=== PATIENT | female | born 1935 | race Caucasian/White ===

== ENCOUNTER → 2016-09-16 | Outpatient (CLI) | payer MEDICARE, BC ==
[~2016-09-16] MED LIST: ASPIR-LOW81 MG PO; ASPIRIN E.C. 8181 MG PO; ATIVAN 0.50.5 MG/TAB PO; ATORVASTATIN; BETAPACE 120MG120 MG PO; CALTRATE-600 W600 MG PO; CARDI-OMEGA1000 MG PO; CARDIZEM CD 18180 MG PO; CENTRUM SILVER1 TA1 PO; CIPRO 500MG TA500 MG PO; COMBIRESP IH; COMBIVENT INH14.7 GM IH; DOXYCYCLINE 10100 MG PO; DULERA1 AR1 IH; DULERA1 ARO IH; ELIQUIS 2.5 PO; FLAX SEED OIL1000 MG PO; GAS RELIEF EXT125 MG PO; HCTZ; HCTZ 25MG TAB25 MG PO; HCTZ12.5TAB PO; HEPARIN 50500 U/5 ML IV; INCRUSE EL62.5 MCG/A IH; LIPITOR 10MG10 MG PO; MACARDIS; MAXIPIME2 GM IV; MICARDIS 40MG40 MG PO; MICARDIS80 MG PO; MULTAQ400 MG PO; NORVASC 10MG10 MG PO; NORVASC 5MG5 MG/TAB PO; NS INT FLUSH 1010 ML IV; PREDNISONE20 MG PO; PRESERVISIONLUT PO; PROMETHAZINE V473 M2 PO; ROBITUSSIN A-C S1 M1 PO; SENOKOT8.6 MG PO; SPIRIVA18 MCG IH; SYMBICORT1 AE2 IH; TOPROL XL100 MG PO; TOPROL XL25 MG PO; ULTRAM 50MG TAB50 MG PO; VITAMIN D1000 IU PO; XARELTO20 MG PO; ZOFRAN 4MG T4 MG/TAB PO; ZYRTEC 10MG10 MG PO
== END ==
LOC: MC.RAD 14:42
DX: Z12.31 Encounter for screening mammogram for malignant neoplasm of breast (principal)

== ENCOUNTER 2016-12-03 13:23 | Inpatient (IN) | payer MEDICARE, BC ==
[~2016-12-03] VITALS: Ht 152.4 cm; Wt 49.2 kg
[~2016-12-03 13:23] MED LIST changes: -CIPRO 500MG TA500 MG PO; -DOXYCYCLINE 10100 MG PO; -DULERA1 AR1 IH; -GAS RELIEF EXT125 MG PO; -HCTZ 25MG TAB25 MG PO; -HEPARIN 50500 U/5 ML IV; -MAXIPIME2 GM IV; -NORVASC 10MG10 MG PO; -NS INT FLUSH 1010 ML IV; -PREDNISONE20 MG PO; -PROMETHAZINE V473 M2 PO; -ROBITUSSIN A-C S1 M1 PO; -ZOFRAN 4MG T4 MG/TAB PO
[2016-12-03 14:01] LABS: MEAN CELL VOLUME 81 fl (80.0-100.0); MEAN CORPUSCULAR HGB CONC 33 g/dl (33.0-37.0); MEAN PLATELET VOLUME 9.7 fl (7.4-10.4); PLATELET COUNT 407 K/mm3 (130-400); RED BLOOD COUNT 4.24 M/mm3 (4.10-5.30); REDCELL DISTRIBUTION WIDTH-CV 15.3 % (11.5-14.5)
[2016-12-03 14:04] LABS: HEMATOCRIT 34.5 % (37.0-47.0); HEMOGLOBIN 11.5 g/dl (12.5-16.0); MEAN CORPUSCULAR HEMOGLOBIN 27 pg (27.0-31.0)
[2016-12-03 14:08] LABS: ADD PATHOLOGY DIFF REVIEW NO; WHITE BLOOD COUNT 26.5 K/mm3 (4.8-10.8)
[2016-12-03 14:13] LABS: ADJUSTED CALCIUM 9.5 mg/dL (8.4-10.2); BILIRUBIN,TOTAL 1.3 mg/dL (0.0-1.0); CALCIUM 9.5 mg/dL (8.4-10.2); CREATININE, serum 0.75 mg/dL (0.52-1.25); POTASSIUM 3.7 mmol/L (3.4-5.0); TOTAL PROTEIN 8.5 gm/dL (6.4-8.2)
[2016-12-03 14:13] LABS: ARTERIAL BLD GAS O2 SATURATION 93.1 % (92-100); ARTERIAL BLD GAS TCO2 CT 27.1; ARTERIAL BLOOD GAS BASE EXCESS 3.2 (-2-2); ARTERIAL BLOOD GAS PO2 63.9 mmHg (80-100); ARTERIAL BLOOD GAS PO2T 63.9 (80-100); OXYHEMOGLOBIN 92.2 %
[2016-12-03 14:14] LABS: ALLEN TEST YES; ALLENS TEST RESULT PASS; ATS? YES
[2016-12-03 14:35] LABS: BAND 10 % (0-10); NEUTROPHILS 79 % (42.0-75.2)
[2016-12-03 14:36] LABS: PLATELET ESTIMATE INCREASED (NORMAL); TOTAL CELLS COUNTED 200
[2016-12-03 14:40] LABS: ANISOCYTOSIS 1+; DOHLE BODIES PRESENT; OVALOCYTES 1+; TOXIC GRANULATION PRESENT
[2016-12-03 16:07] VITALS: BP 139/62; PULSE 58; TEMP 97.8
[2016-12-03] MEDS ORDERED: HCTZ 25MG TAB25 MG PO (16:18)
[2016-12-03] MEDS ORDERED: BETAPACE 120MG120 MG PO (16:19)
[2016-12-03] MEDS ORDERED: ELIQUIS 2.5 PO (16:22)
[2016-12-03] MEDS ORDERED: GAS RELIEF EXT125 MG PO (17:50)
[2016-12-03 19:19] VITALS: BP 137/62; PULSE 62; TEMP 97.6
[2016-12-03 23:53] VITALS: BP 128/57; PULSE 59; TEMP 97.6
[2016-12-04 04:13] VITALS: BP 131/51; PULSE 59; TEMP 97.5
[2016-12-04 07:29] LABS: CALCIUM 8.6 mg/dL (8.4-10.2); CREATININE, serum 0.48 mg/dL (0.52-1.25); POTASSIUM 3.1 mmol/L (3.4-5.0)
[2016-12-04 07:30] VITALS: BP 144/55; PULSE 64; TEMP 97.4
[2016-12-04 10:50] VITALS: BP 139/52; PULSE 61; TEMP 97.6
[2016-12-04 16:38] LABS: MEAN CELL VOLUME 80 fl (80.0-100.0); MEAN CORPUSCULAR HGB CONC 34 g/dl (33.0-37.0); MEAN PLATELET VOLUME 9.9 fl (7.4-10.4); PLATELET COUNT 422 K/mm3 (130-400); RED BLOOD COUNT 3.98 M/mm3 (4.10-5.30)
[2016-12-04 16:39] LABS: WHITE BLOOD COUNT 23.8 K/mm3 (4.8-10.8)
[2016-12-04 16:40] LABS: HEMATOCRIT 31.9 % (37.0-47.0); HEMOGLOBIN 10.8 g/dl (12.5-16.0); MEAN CORPUSCULAR HEMOGLOBIN 27 pg (27.0-31.0)
[2016-12-04 16:45] LABS: CALCIUM 8.4 mg/dL (8.4-10.2); CREATININE, serum 0.51 mg/dL (0.52-1.25); POTASSIUM 3.1 mmol/L (3.4-5.0)
[2016-12-04 20:34] VITALS: BP 146/55; PULSE 61; TEMP 98.3
[2016-12-04 23:14] VITALS: BP 153/71; PULSE 64; TEMP 98.7
[2016-12-05 04:41] VITALS: BP 188/70; PULSE 95; TEMP 98.2
[2016-12-05 07:43] VITALS: BP 159/66; PULSE 69; TEMP 98
[2016-12-05 08:02] LABS: CALCIUM 8.2 mg/dL (8.4-10.2); CREATININE, serum 0.48 mg/dL (0.52-1.25); POTASSIUM 3.1 mmol/L (3.4-5.0)
[2016-12-05 12:00] VITALS: BP 148/57; PULSE 66; TEMP 98.2
[2016-12-05 12:56] LABS: MEAN CELL VOLUME 83 fl (80.0-100.0); MEAN CORPUSCULAR HGB CONC 33 g/dl (33.0-37.0); MEAN PLATELET VOLUME 10.6 fl (7.4-10.4); PLATELET COUNT 452 K/mm3 (130-400); RED BLOOD COUNT 3.91 M/mm3 (4.10-5.30); REDCELL DISTRIBUTION WIDTH-CV 15.7 % (11.5-14.5)
[2016-12-05 13:02] LABS: ADD PATHOLOGY DIFF REVIEW NO; HEMATOCRIT 32.5 % (37.0-47.0); HEMOGLOBIN 10.6 g/dl (12.5-16.0); MEAN CORPUSCULAR HEMOGLOBIN 27 pg (27.0-31.0); WHITE BLOOD COUNT 20.7 K/mm3 (4.8-10.8)
[2016-12-05 14:16] LABS: BAND 1 % (0-10); NEUTROPHILS 93 % (42.0-75.2); TOTAL CELLS COUNTED 100
[2016-12-05 14:18] LABS: ANISOCYTOSIS 1+; BURR CELLS 1+; POIKILOCYTOSIS 1+
[2016-12-05 14:19] LABS: POLYCHROMASIA 1+
[2016-12-05 15:07] VITALS: BP 153/73; PULSE 70; TEMP 98.2
[2016-12-05 19:33] VITALS: BP 153/66; PULSE 50; TEMP 98.1
[2016-12-06] VITALS (7 sets, daily range): BP systolic 132–177; BP diastolic 58–96; PULSE 62–90; TEMP 97.4–98.5
[2016-12-06 08:51] LABS: BASO % 0.2 % (0.0-2.0); EOS % 0.3 % (0-4.0); GRAN # 9.8 (1.4-6.5); GRAN % 81.9 % (42.2-75.2); LYMPH # 0.7 (1.2-3.4); LYMPH % 5.4 % (20.0-51.0); MEAN CELL VOLUME 83 fl (80.0-100.0); MEAN CORPUSCULAR HGB CONC 32 g/dl (33.0-37.0); MEAN PLATELET VOLUME 10.1 fl (7.4-10.4); MONO # 1.3 (0.1-0.6); MONO % 10.9 % (1.7-9.3); PLATELET COUNT 469 K/mm3 (130-400); RED BLOOD COUNT 3.94 M/mm3 (4.10-5.30); REDCELL DISTRIBUTION WIDTH-CV 15.5 % (11.5-14.5); WHITE BLOOD COUNT 11.9 K/mm3 (4.8-10.8)
[2016-12-06 09:00] LABS: HEMATOCRIT 32.8 % (37.0-47.0); HEMOGLOBIN 10.6 g/dl (12.5-16.0); MEAN CORPUSCULAR HEMOGLOBIN 27 pg (27.0-31.0)
[2016-12-06 09:07] LABS: CALCIUM 8.6 mg/dL (8.4-10.2); CREATININE, serum 0.45 mg/dL (0.52-1.25); POTASSIUM 3.1 mmol/L (3.4-5.0)
[2016-12-07 04:54] VITALS: BP 156/77; PULSE 95; TEMP 98.5
[2016-12-07 07:14] VITALS: BP 153/87; PULSE 110; TEMP 97.7
[2016-12-07 08:21] LABS: CALCIUM 8.4 mg/dL (8.4-10.2); CREATININE, serum 0.45 mg/dL (0.52-1.25); POTASSIUM 3.2 mmol/L (3.4-5.0)
[2016-12-07 08:26] LABS: BASO % 0.2 % (0.0-2.0); EOS # 0.1 (0.0-0.7); EOS % 0.6 % (0-4.0); GRAN # 12.1 (1.4-6.5); GRAN % 81.7 % (42.2-75.2); MEAN CELL VOLUME 82 fl (80.0-100.0); MEAN CORPUSCULAR HGB CONC 33 g/dl (33.0-37.0); MEAN PLATELET VOLUME 9.5 fl (7.4-10.4); MONO # 1.1 (0.1-0.6); MONO % 7.3 % (1.7-9.3); PLATELET COUNT 448 K/mm3 (130-400); REDCELL DISTRIBUTION WIDTH-CV 15.3 % (11.5-14.5); WHITE BLOOD COUNT 14.8 K/mm3 (4.8-10.8)
[2016-12-07 08:31] LABS: HEMATOCRIT 31.2 % (37.0-47.0); HEMOGLOBIN 10.2 g/dl (12.5-16.0); MEAN CORPUSCULAR HEMOGLOBIN 27 pg (27.0-31.0)
[2016-12-07 11:28] VITALS: BP 113/77; PULSE 100; TEMP 97.9
[2016-12-07 15:49] VITALS: BP 115/70; PULSE 112; TEMP 97.2
[2016-12-07 20:09] VITALS: BP 141/80; PULSE 94; TEMP 98.1
[2016-12-08 00:06] VITALS: BP 138/75; PULSE 95; TEMP 98
[2016-12-08 05:00] VITALS: BP 145/87; PULSE 105; TEMP 97.8
[2016-12-08 07:50] VITALS: BP 148/90; PULSE 97; TEMP 98.4
[2016-12-08 11:47] LABS: MEAN CELL VOLUME 83 fl (80.0-100.0); MEAN CORPUSCULAR HGB CONC 32 g/dl (33.0-37.0); MEAN PLATELET VOLUME 9.7 fl (7.4-10.4); PLATELET COUNT 503 K/mm3 (130-400); REDCELL DISTRIBUTION WIDTH-CV 15.3 % (11.5-14.5); WHITE BLOOD COUNT 13.5 K/mm3 (4.8-10.8)
[2016-12-08 11:52] LABS: ADD PATHOLOGY DIFF REVIEW NO; HEMATOCRIT 33.2 % (37.0-47.0); HEMOGLOBIN 10.7 g/dl (12.5-16.0); MEAN CORPUSCULAR HEMOGLOBIN 27 pg (27.0-31.0)
[2016-12-08 12:06] LABS: CALCIUM 8.5 mg/dL (8.4-10.2); CREATININE, serum 0.59 mg/dL (0.52-1.25); POTASSIUM 3.5 mmol/L (3.4-5.0)
[2016-12-08 12:42] VITALS: BP 111/72; PULSE 107; TEMP 98.3
[2016-12-08 12:53] LABS: BAND 21 % (0-10); EOSINOPHIL 2 % (0-4); HYPOCHROMIA 1+; NEUTROPHILS 65 % (42.0-75.2); PLATELET ESTIMATE INCREASED (NORMAL); TOTAL CELLS COUNTED 100
[2016-12-08 12:54] LABS: ANISOCYTOSIS 1+
[2016-12-08] MEDS ORDERED: HEPARIN 50500 U/5 ML IV (14:27)
[2016-12-08] MEDS ORDERED: NS INT FLUSH 1010 ML IV (14:28)
[2016-12-08] MEDS ORDERED: MAXIPIME2 GM IV (14:29)
== END 2016-12-08 17:30 | disposition home or self-care (01) | DRG 177 ==
LOC: COL.ER 13:23 → MEDICAL 14:55
PROVIDERS: Family Medicine; Internal Medicine Cardiovascular Disease; Nurse Practitioner Family
PROC: 02HV33Z Insertion of Infusion Device into Superior Vena Cava, Percutaneous Approach (ICD-10-PCS; principal; 2016-12-08)
DX: J15.1 Pneumonia due to Pseudomonas (principal); J96.21 Acute and chronic respiratory failure with hypoxia; E43 Unspecified severe protein-calorie malnutrition; J44.0 Chronic obstructive pulmonary disease with (acute) lower respiratory infection; I50.32 Chronic diastolic (congestive) heart failure; E87.1 Hypo-osmolality and hyponatremia; I11.0 Hypertensive heart disease with heart failure; Z87.891 Personal history of nicotine dependence; E87.6 Hypokalemia; I48.2 Chronic atrial fibrillation; F41.1 Generalized anxiety disorder
CPT/HCPCS: 99222-AI; 99232-AI; 99233-AI; 99239; C1751; J0692; J0696; J1940; J2930; J7030

== ENCOUNTER 2017-01-13 10:00 | Inpatient (IN) | payer MEDICARE, BC ==
[~2017-01-13] VITALS: Ht 152.4 cm; Wt 46.9 kg
[~2017-01-13 10:00] MED LIST changes: +GAS RELIEF EXT125 MG PO; +HCTZ 25MG TAB25 MG PO; +HEPARIN 50500 U/5 ML IV; +MAXIPIME2 GM IV; +NS INT FLUSH 1010 ML IV
[2017-01-13 10:48] LABS: ARTERIAL BLD GAS O2 SATURATION 90.8 % (92-100); ARTERIAL BLD GAS TCO2 CT 30.7; ARTERIAL BLOOD GAS HCO3 29.4 meq/L (22-26); ARTERIAL BLOOD GAS PHT 7.45 C (7.35-7.45); ARTERIAL BLOOD GAS PO2 60.4 mmHg (80-100); ARTERIAL BLOOD GAS PO2T 60.4 (80-100); ARTERIAL BLOOD GAS pH 7.45 (7.35-7.45); OXYHEMOGLOBIN 90.1 %
[2017-01-13 10:49] LABS: ALLEN TEST YES; ALLENS TEST RESULT PASS; ATS? YES
[2017-01-13 11:09] LABS: MEAN CELL VOLUME 83 fl (80.0-100.0); MEAN CORPUSCULAR HGB CONC 32 g/dl (33.0-37.0); MEAN PLATELET VOLUME 9.9 fl (7.4-10.4); PLATELET COUNT 315 K/mm3 (130-400); REDCELL DISTRIBUTION WIDTH-CV 16.6 % (11.5-14.5)
[2017-01-13 11:22] LABS: ADJUSTED CALCIUM 9.1 mg/dL (8.4-10.2); ALBUMIN 3.8 gm/dL (3.5-5.0); BILIRUBIN,TOTAL 1.1 mg/dL (0.0-1.0); CALCIUM 8.9 mg/dL (8.4-10.2); CREATININE, serum 0.76 mg/dL (0.52-1.25); POTASSIUM 3.7 mmol/L (3.4-5.0)
[2017-01-13 11:25] LABS: PARTIAL THROMBOPLASTIN TIME 40.3 SECONDS (26.0-37.0)
[2017-01-13 11:33] LABS: HEMATOCRIT 33.1 % (37.0-47.0); HEMOGLOBIN 10.7 g/dl (12.5-16.0); MEAN CORPUSCULAR HEMOGLOBIN 27 pg (27.0-31.0); WHITE BLOOD COUNT 27.6 K/mm3 (4.8-10.8)
[2017-01-13 11:35] LABS: INR 2.4 (0.8-3.0); PROTHROMBIN TIME 27.8 SECONDS (9.7-12.8)
[2017-01-13 11:39] LABS: ADD PATHOLOGY DIFF REVIEW NO
[2017-01-13 11:43] LABS: TROPONIN-I 0.04 ng/mL (0.000-0.034)
[2017-01-13 11:52] LABS: BAND 42 % (0-10); NEUTROPHILS 54 % (42.0-75.2); PLATELET ESTIMATE NORMAL (NORMAL); TOTAL CELLS COUNTED 100
[2017-01-13] MEDS ORDERED: NORVASC 10MG10 MG PO (12:44)
[2017-01-13] MEDS ORDERED: ROBITUSSIN A-C S1 M1 PO (12:47)
[2017-01-13] MEDS ORDERED: ZOFRAN 4MG T4 MG/TAB PO (12:49)
[2017-01-13] MEDS ORDERED: PROMETHAZINE V473 M2 PO (12:51)
[2017-01-13] MEDS ORDERED: DULERA1 AR1 IH (12:54)
[2017-01-13 14:39] VITALS: BP 102/55; PULSE 57; TEMP 97.8
[2017-01-13 19:58] VITALS: BP 150/56; PULSE 69; TEMP 98.5
[2017-01-13 23:03] VITALS: BP 135/64; PULSE 63; TEMP 97.6
[2017-01-14 03:20] VITALS: BP 133/79; PULSE 110; TEMP 98.5
[2017-01-14 07:52] VITALS: BP 143/93; PULSE 88; TEMP 97.5
[2017-01-14 08:01] LABS: CREATININE, serum 0.44 mg/dL (0.52-1.25)
[2017-01-14 08:02] LABS: MEAN CELL VOLUME 83 fl (80.0-100.0); MEAN CORPUSCULAR HGB CONC 32 g/dl (33.0-37.0); MEAN PLATELET VOLUME 10.7 fl (7.4-10.4); PLATELET COUNT 317 K/mm3 (130-400); RED BLOOD COUNT 3.58 M/mm3 (4.10-5.30); REDCELL DISTRIBUTION WIDTH-CV 16.4 % (11.5-14.5); WHITE BLOOD COUNT 17.7 K/mm3 (4.8-10.8)
[2017-01-14 08:17] LABS: POTASSIUM 2.9 mmol/L (3.4-5.0)
[2017-01-14 08:20] LABS: HEMATOCRIT 29.7 % (37.0-47.0); HEMOGLOBIN 9.6 g/dl (12.5-16.0); MEAN CORPUSCULAR HEMOGLOBIN 27 pg (27.0-31.0)
[2017-01-14 08:21] LABS: ADD PATHOLOGY DIFF REVIEW NO
[2017-01-14 09:52] LABS: BAND 20 % (0-10); NEUTROPHILS 77 % (42.0-75.2); PLATELET ESTIMATE NORMAL (NORMAL); TOTAL CELLS COUNTED 100
[2017-01-14 12:03] VITALS: BP 133/79; PULSE 78
[2017-01-14 16:00] VITALS: BP 129/60; PULSE 66; TEMP 97.9
[2017-01-14 21:11] VITALS: BP 142/69; PULSE 65; TEMP 97.6
[2017-01-14 23:56] VITALS: BP 137/59; PULSE 67; TEMP 97.6
[2017-01-15 07:25] LABS: MEAN CELL VOLUME 85 fl (80.0-100.0); MEAN CORPUSCULAR HGB CONC 31 g/dl (33.0-37.0); MEAN PLATELET VOLUME 10.4 fl (7.4-10.4); PLATELET COUNT 344 K/mm3 (130-400); RED BLOOD COUNT 3.28 M/mm3 (4.10-5.30); REDCELL DISTRIBUTION WIDTH-CV 16.7 % (11.5-14.5)
[2017-01-15 07:28] VITALS: BP 151/80; PULSE 76; TEMP 98.4
[2017-01-15 07:31] LABS: ADD PATHOLOGY DIFF REVIEW NO; HEMOGLOBIN 8.7 g/dl (12.5-16.0); MEAN CORPUSCULAR HEMOGLOBIN 27 pg (27.0-31.0)
[2017-01-15 07:33] VITALS: BP 135/58; PULSE 62
[2017-01-15 07:42] LABS: CALCIUM 7.6 mg/dL (8.4-10.2); CREATININE, serum 0.48 mg/dL (0.52-1.25); POTASSIUM 4.3 mmol/L (3.4-5.0)
[2017-01-15 08:14] LABS: BAND 18 % (0-10); EOSINOPHIL 1 % (0-4); HYPOCHROMIA 2+; METAMYELOCYTE 1 % (0-0); NEUTROPHILS 76 % (42.0-75.2); TOTAL CELLS COUNTED 100
[2017-01-15 08:15] LABS: ANISOCYTOSIS 1+
[2017-01-15 10:59] VITALS: BP 134/63; PULSE 86; TEMP 97.8
[2017-01-15 15:28] VITALS: BP 158/71; PULSE 76; TEMP 97.9
[2017-01-15 21:00] VITALS: BP 209/86; PULSE 79; TEMP 98.5
[2017-01-15 22:30] VITALS: BP 201/82; PULSE 76; TEMP 98.4
[2017-01-16] VITALS (9 sets, daily range): BP systolic 148–207; BP diastolic 66–124; PULSE 43–130; TEMP 97.3–98.5
[2017-01-17 01:00] VITALS: BP 143/90; PULSE 102
[2017-01-17 07:08] LABS: BASO % 0.1 % (0.0-2.0); GRAN % 88.8 % (42.2-75.2); LYMPH # 0.6 (1.2-3.4); LYMPH % 4.3 % (20.0-51.0); MEAN CELL VOLUME 84 fl (80.0-100.0); MEAN CORPUSCULAR HGB CONC 32 g/dl (33.0-37.0); MONO # 0.8 (0.1-0.6); MONO % 5.4 % (1.7-9.3); PLATELET COUNT 428 K/mm3 (130-400); RED BLOOD COUNT 3.61 M/mm3 (4.10-5.30); REDCELL DISTRIBUTION WIDTH-CV 16.6 % (11.5-14.5); WHITE BLOOD COUNT 14.7 K/mm3 (4.8-10.8)
[2017-01-17 07:20] VITALS: BP 119/85; PULSE 75; TEMP 97.8
[2017-01-17 07:20] LABS: HEMATOCRIT 30.4 % (37.0-47.0); HEMOGLOBIN 9.7 g/dl (12.5-16.0); MEAN CORPUSCULAR HEMOGLOBIN 27 pg (27.0-31.0)
[2017-01-17 07:23] LABS: CALCIUM 7.7 mg/dL (8.4-10.2); CREATININE, serum 0.46 mg/dL (0.52-1.25); POTASSIUM 3.2 mmol/L (3.4-5.0)
[2017-01-17 12:28] VITALS: BP 151/55; PULSE 85; TEMP 97.9
[2017-01-17] MEDS ORDERED: DOXYCYCLINE 10100 MG PO (12:39)
[2017-01-17] MEDS ORDERED: CIPRO 500MG TA500 MG PO (12:39)
[2017-01-17] MEDS ORDERED: PREDNISONE20 MG PO (12:45)
[2017-01-17] MEDS ORDERED: ROBITUSSIN A-C S1 M1 PO (12:46)
[2017-01-17] MEDS ORDERED: ULTRAM 50MG TAB50 MG PO (12:46)
[2017-01-17] MEDS ORDERED: ATIVAN 0.50.5 MG/TAB PO (12:46)
[2017-01-17 14:42] VITALS: BP 151/55; PULSE 85; TEMP 97.9
== END 2017-01-17 15:14 | DRG 190 ==
LOC: COL.ER 10:00 → MEDICAL 11:59
PROVIDERS: Emergency Medicine; Family Medicine; Nurse Practitioner Family
DX: J44.0 Chronic obstructive pulmonary disease with (acute) lower respiratory infection (principal); J15.212 Pneumonia due to Methicillin resistant Staphylococcus aureus; J15.1 Pneumonia due to Pseudomonas; E43 Unspecified severe protein-calorie malnutrition; I10 Essential (primary) hypertension; Z87.891 Personal history of nicotine dependence; I48.0 Paroxysmal atrial fibrillation; E87.6 Hypokalemia
CPT/HCPCS: 99223-AI; 99232-AI; 99239; J0360; J0456; J0692; J0696; J2920; J3370; J7030; J7050

== ENCOUNTER → 2017-03-31 | Outpatient (CLI) | payer MEDICARE, BC ==
[~2017-03-31] MED LIST changes: +CIPRO 500MG TA500 MG PO; +DOXYCYCLINE 10100 MG PO; +DULERA1 AR1 IH; +NORVASC 10MG10 MG PO; +PREDNISONE20 MG PO; +PROMETHAZINE V473 M2 PO; +ROBITUSSIN A-C S1 M1 PO; +ZOFRAN 4MG T4 MG/TAB PO
== END ==
LOC: COL.PUL 03-24 14:00
DX: J44.9 Chronic obstructive pulmonary disease, unspecified (principal); Z87.891 Personal history of nicotine dependence

== ENCOUNTER 2018-08-03 13:43 | Inpatient (IN) | payer MEDICARE, BC ==
[~2018-08-03] VITALS: Ht 162.6 cm; Wt 47.3 kg
[2018-08-03 14:40] LABS: BASO % 0.2 % (0.0-2.0); EOS # 0.2 (0.0-0.7); EOS % 1.8 % (0-4.0); GRAN # 11.9 (1.4-6.5); GRAN % 87.1 % (42.2-75.2); HEMOGLOBIN 11.3 g/dl (12.5-16.0); LYMPH # 0.5 (1.2-3.4); LYMPH % 3.5 % (20.0-51.0); MEAN CELL VOLUME 82 fl (80.0-100.0); MEAN CORPUSCULAR HEMOGLOBIN 26 pg (27.0-31.0); MEAN CORPUSCULAR HGB CONC 32 g/dl (33.0-37.0); MONO # 0.8 (0.1-0.6); MONO % 6.1 % (1.7-9.3); PLATELET COUNT 487 K/mm3 (130-400); RED BLOOD COUNT 4.31 M/mm3 (4.10-5.30); REDCELL DISTRIBUTION WIDTH-CV 14.6 % (11.5-14.5)
[2018-08-03 14:47] LABS: HEMATOCRIT 35.5 % (37.0-47.0)
[2018-08-03 14:48] LABS: ALBUMIN 3.5 gm/dL (3.5-5.0); BILIRUBIN,TOTAL 0.5 mg/dL (0.0-1.0); CREATININE, serum 0.62 mg/dL (0.52-1.25); POTASSIUM 4.9 mmol/L (3.4-5.0); TOTAL PROTEIN 7.7 gm/dL (6.4-8.2)
[2018-08-03 14:56] LABS: INR 1.7 (0.8-3.0); PROTHROMBIN TIME 19.5 SECONDS (9.7-12.8)
[2018-08-03 16:19] LABS: ARTERIAL BLD GAS O2 SATURATION 91.6 % (92-100); ARTERIAL BLD GAS TCO2 CT 43.4; ARTERIAL BLOOD GAS BASE EXCESS 15.7 (-2-2); ARTERIAL BLOOD GAS HCO3 41.7 meq/L (22-26); ARTERIAL BLOOD GAS PCO2 57.5 mmHg (35-45); ARTERIAL BLOOD GAS PO2 62.9 mmHg (80-100); ARTERIAL BLOOD GAS pH 7.48 (7.35-7.45)
--- NOTE | 2018-08-03 18:13 | NUR ---
Pt arrived to room 309 via cart with EED staff. Pt transferred from the cart to the floor bed with the assistance of one. Pt and family oriented to room and call light system. Pt is sitting up in the bed watching TV at this time and she denies further needs. Call light within reach, will continue to monitor.
[2018-08-03 18:23] VITALS: BP 108/84; PULSE 87; TEMP 98.1
--- NOTE | 2018-08-03 19:10 | NUR ---
Since arriving to the floor the pt has been resting quietly. She has remained free of pain. Family members have remained at the bedside; all questions answered. Pt is sitting up in the bed eating her dinner at this time and she denies further needs. Call light within reach. Report given to WERNER Gan.
[2018-08-03 19:41] VITALS: BP 101/53; PULSE 108; TEMP 98
--- NOTE | 2018-08-03 19:53 | NUR ---
Resting in bed. Assessment complete. Right lung wheezing on expiration. Left lung clear. Alert and orientated. Requesting all 4 bed rails to be up on bed. Denies pain. Denies needs. Call light in reach.
--- NOTE | 2018-08-03 21:48 | NUR ---
Up to restroom and returned to bed. Denies other needs. Call light in reach.
[2018-08-03 23:53] VITALS: BP 102/84; PULSE 68; TEMP 98.3
--- NOTE | 2018-08-04 02:10 | NUR ---
Resting in bed asleep. Call light in reach.
[2018-08-04 03:58] VITALS: BP 114/70; PULSE 61; TEMP 97.7
--- NOTE | 2018-08-04 04:40 | NUR ---
Resting in bed. Call light in reach.
--- NOTE | 2018-08-04 06:00 | NUR ---
Up to restroom and returned to bed. Had uneventful night. Denies needs. Call light in reach.
[2018-08-04 07:44] VITALS: BP 99/67; PULSE 98; TEMP 97.7
[2018-08-04 08:47] LABS: HEMOGLOBIN 10.5 g/dl (12.5-16.0); MEAN CELL VOLUME 84 fl (80.0-100.0); MEAN CORPUSCULAR HEMOGLOBIN 27 pg (27.0-31.0); MEAN CORPUSCULAR HGB CONC 32 g/dl (33.0-37.0); MEAN PLATELET VOLUME 9.1 fl (7.4-10.4); PLATELET COUNT 481 K/mm3 (130-400); RED BLOOD COUNT 3.96 M/mm3 (4.10-5.30); REDCELL DISTRIBUTION WIDTH-CV 14.6 % (11.5-14.5)
[2018-08-04 09:02] LABS: BILIRUBIN,TOTAL 0.2 mg/dL (0.0-1.0); CALCIUM 8.3 mg/dL (8.4-10.2); CREATININE, serum 0.6 mg/dL (0.52-1.25); POTASSIUM 4.7 mmol/L (3.4-5.0); TOTAL PROTEIN 6.8 gm/dL (6.4-8.2)
[2018-08-04 09:06] LABS: HEMATOCRIT 33.1 % (37.0-47.0)
--- NOTE | 2018-08-04 09:24 | NUR ---
Assessment complete.patient awake,a/ox4.denies pain and discomfort at this time.Exp wheezes aus. 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
[2018-08-04 09:42] LABS: BAND 22 % (0-10); LYMPHOCYTE 2 % (20.0-51.0); NEUTROPHILS 75 % (42.0-75.2)
[2018-08-04 09:44] LABS: PLATELET ESTIMATE INCREASED (NORMAL)
[2018-08-04 11:15] VITALS: BP 103/57; PULSE 103; TEMP 98.5
--- NOTE | 2018-08-04 14:33 | NUR ---
SW met with patient to discuss discharge planning. Patient lives alone in [place] and uses o2 and a walker. Patients daughter is at her house a lot and her neighbor helps her as well. patients PCP is Dr Turner and she obtains her medications from [facility]. Patient is interested in home health again and would like to use [facility] as she has in the past. SW made hh referral.
[2018-08-04 15:31] VITALS: BP 122/68; PULSE 79; TEMP 97.5
[2018-08-04 18:42] VITALS: BP 147/82; PULSE 94; TEMP 97.6
--- NOTE | 2018-08-04 19:07 | NUR ---
Report received from WERNER Luong. Up to restroom with DELIVERY RN. Denies needs.
--- NOTE | 2018-08-04 20:05 | NUR ---
Resting in bed with family at bedside. Assessment complete. Right lower lobe diminished, all other crockett clear. Alert and orientated. Denies needs at this time. Call light in reach. Will monitor.
--- NOTE | 2018-08-04 20:35 | NUR ---
Patient called stating IV is bleeding. Upon assessment dried blood present on tegaderm, previously noted. Flushes well, no leaking, no infiltration present. Denies other needs at this time. Call light in reach.
--- NOTE | 2018-08-04 22:31 | NUR ---
Up to restroom and returned to bed. Denies needs. Call light in reach.
[2018-08-04 23:42] VITALS: BP 116/59; PULSE 61; TEMP 97.8
--- NOTE | 2018-08-05 00:20 | NUR ---
Resting in bed. Denies needs. Checked telemetry lead. Call light in reach.
--- NOTE | 2018-08-05 01:46 | NUR ---
Resting in bed asleep. Call light in reach.
--- NOTE | 2018-08-05 03:22 | NUR ---
Requested PRN Ativan at HS to help with anxiety/sleeping. Denies other needs at this time. Call light in reach.
[2018-08-05 03:54] VITALS: BP 119/64; PULSE 68
--- NOTE | 2018-08-05 04:24 | NUR ---
Resting in bed. Denies needs. Call light in reach.
--- NOTE | 2018-08-05 06:01 | NUR ---
Resting in bed this AM. Had uneventful night. Call light in reach.
--- NOTE | 2018-08-05 07:11 | NUR ---
report received from WERNER Gan.
[2018-08-05 07:14] LABS: BASO % 0.2 % (0.0-2.0); EOS % 0.1 % (0-4.0); GRAN # 15.3 (1.4-6.5); GRAN % 88.6 % (42.2-75.2); LYMPH # 0.6 (1.2-3.4); LYMPH % 3.5 % (20.0-51.0); MEAN CELL VOLUME 83 fl (80.0-100.0); MEAN CORPUSCULAR HGB CONC 32 g/dl (33.0-37.0); MEAN PLATELET VOLUME 9.1 fl (7.4-10.4); MONO # 1.2 (0.1-0.6); MONO % 6.7 % (1.7-9.3); PLATELET COUNT 433 K/mm3 (130-400); RED BLOOD COUNT 3.46 M/mm3 (4.10-5.30); REDCELL DISTRIBUTION WIDTH-CV 14.9 % (11.5-14.5)
[2018-08-05 07:23] LABS: HEMATOCRIT 28.8 % (37.0-47.0); HEMOGLOBIN 9.2 g/dl (12.5-16.0); MEAN CORPUSCULAR HEMOGLOBIN 27 pg (27.0-31.0)
[2018-08-05 07:29] LABS: CALCIUM 7.9 mg/dL (8.4-10.2); CREATININE, serum 0.51 mg/dL (0.52-1.25); POTASSIUM 4.1 mmol/L (3.4-5.0)
[2018-08-05 08:00] VITALS: BP 145/72; PULSE 82; TEMP 97.9
--- NOTE | 2018-08-05 08:37 | NUR ---
Assessment complete.patient awake,alert and oriented x4.denies pain and discomfort at this time.Vss.WBC trending up.crackles to bilat lungs bases.exp wheezes noted.patient continues having productive.MRSA screen pending.patient remains on contact precaution.IVF infusing.will continue to monitor.call light in reach
[2018-08-05 11:01] VITALS: BP 140/72; PULSE 95; TEMP 98.4
[2018-08-05 16:54] VITALS: BP 122/75; PULSE 98; TEMP 98.8
--- NOTE | 2018-08-05 18:57 | NUR ---
PATIENT RESTING IN BED AT THIS TIME.IVF INFUSING.PT WAS POSITIVE FOR MRSA.SPUTUM SAMPLE STILL PENDING.PATIENT AWARE.WILL CONTINUE TO MONITOR.CALL LIGHT IN REACH
[2018-08-05 20:02] VITALS: BP 143/68; PULSE 93; TEMP 97.9
--- NOTE | 2018-08-05 21:20 | NUR ---
Patient resting in bed with daughters at bedside. Denies pain. IV antibiotic started- wilberto. Assessment completed- some expiratory wheezes heard bilaterally. Vitals stable. Given new water with ice. No other needs at this time.
[2018-08-05 23:33] VITALS: BP 131/65; PULSE 54; TEMP 98.3
[2018-08-06 03:45] VITALS: BP 144/65; PULSE 85; TEMP 98.4
--- NOTE | 2018-08-06 05:14 | NUR ---
Patient slept most of the night, able to ambulate with SBA to restroom. Denies pain. IV antibiotics infusing. No other needs at this time.
[2018-08-06 06:08] LABS: BASO % 0.1 % (0.0-2.0); EOS # 0.1 (0.0-0.7); EOS % 0.4 % (0-4.0); GRAN # 11.8 (1.4-6.5); GRAN % 85.1 % (42.2-75.2); LYMPH # 0.6 (1.2-3.4); LYMPH % 4.3 % (20.0-51.0); MEAN CELL VOLUME 84 fl (80.0-100.0); MEAN CORPUSCULAR HGB CONC 31 g/dl (33.0-37.0); MEAN PLATELET VOLUME 9.5 fl (7.4-10.4); MONO # 1.3 (0.1-0.6); MONO % 9.1 % (1.7-9.3); PLATELET COUNT 428 K/mm3 (130-400); RED BLOOD COUNT 3.67 M/mm3 (4.10-5.30); REDCELL DISTRIBUTION WIDTH-CV 15.1 % (11.5-14.5)
[2018-08-06 06:14] LABS: CALCIUM 7.7 mg/dL (8.4-10.2); CREATININE, serum 0.56 mg/dL (0.52-1.25); POTASSIUM 3.6 mmol/L (3.4-5.0)
[2018-08-06 06:15] LABS: HEMATOCRIT 30.7 % (37.0-47.0); HEMOGLOBIN 9.6 g/dl (12.5-16.0); MEAN CORPUSCULAR HEMOGLOBIN 26 pg (27.0-31.0)
--- NOTE | 2018-08-06 06:46 | NUR ---
Report given to WERNER Chavira. Patient asleep at this time.
[2018-08-06 06:52] VITALS: BP 144/89; PULSE 94; TEMP 97.8
--- NOTE | 2018-08-06 07:40 | NUR ---
Assessment complete. Pt is AXO X3, denies having any pain at this time. Breathing is even and unlabored on 2L via NC. Tele on. LF infusing, remains free of complications, and is CDI. Pt helped to the restroom; pericare provided. Pt is now sitting up in the bed waiting for her breakfast to arrive and she denies further needs. Call light within reach, will continue to monitor.
[2018-08-06 10:53] VITALS: BP 151/90; PULSE 90; TEMP 98.6
[2018-08-06 16:04] VITALS: BP 157/88; PULSE 92; TEMP 98.8
--- NOTE | 2018-08-06 18:48 | NUR ---
Pt has been resting on and off throughout the day. She has remained free of pain. Pt is sitting up in the bed resting quietly in the bed at this time and she denies further needs. Call light within reach. Report given to WERNER Juares.
[2018-08-06 19:35] VITALS: BP 126/910; PULSE 94; TEMP 98.2
--- NOTE | 2018-08-06 19:51 | NUR ---
Patient resting in bed, denies pain. Assessment completed. Vitals stable. Assisted to restroom with REAL ESTATE UNDERWRITER, no difficulties using walker. Will receive IV vanco at 2200. No other needs at this time.
[2018-08-06 23:13] VITALS: BP 136/80; PULSE 76; TEMP 98.2
[2018-08-07 04:37] VITALS: BP 148/78; PULSE 95; TEMP 98
--- NOTE | 2018-08-07 05:29 | NUR ---
Patient slept most of the shift. VSS, denies pain. Patient receiving IV antibiotics and NS. Able to ambulate to restroom with SBA and walker. NO other needs at this time.
[2018-08-07 06:18] LABS: BASO % 0.1 % (0.0-2.0); EOS # 0.2 (0.0-0.7); EOS % 1.1 % (0-4.0); GRAN # 11.3 (1.4-6.5); GRAN % 82.8 % (42.2-75.2); HEMOGLOBIN 10.2 g/dl (12.5-16.0); LYMPH # 0.6 (1.2-3.4); LYMPH % 4.3 % (20.0-51.0); MEAN CELL VOLUME 84 fl (80.0-100.0); MEAN CORPUSCULAR HEMOGLOBIN 26 pg (27.0-31.0); MEAN CORPUSCULAR HGB CONC 31 g/dl (33.0-37.0); MEAN PLATELET VOLUME 9.1 fl (7.4-10.4); MONO # 1.4 (0.1-0.6); MONO % 10.4 % (1.7-9.3); PLATELET COUNT 418 K/mm3 (130-400); REDCELL DISTRIBUTION WIDTH-CV 15.2 % (11.5-14.5)
[2018-08-07 06:22] LABS: HEMATOCRIT 32.7 % (37.0-47.0)
[2018-08-07 06:29] LABS: CALCIUM 7.6 mg/dL (8.4-10.2); CREATININE, serum 0.54 mg/dL (0.52-1.25); POTASSIUM 3.8 mmol/L (3.4-5.0)
[2018-08-07 07:29] VITALS: BP 147/76; PULSE 68; TEMP 98
--- NOTE | 2018-08-07 07:35 | NUR ---
Assessment complete. Pt is AXO X3, denies having any pain at this time. Breathing is even and unlabored on 2L via NC. Tele on. LF infusing, remains free of complications, and is CDI. Pt helped to the restroom; pericare provided. Pt is now sitting up in the bed eating her breakfast and she denies further needs. Call light within reach, will continue to monitor.
[2018-08-07 11:31] VITALS: BP 141/70; PULSE 82; TEMP 98.6
[2018-08-07 16:29] VITALS: BP 139/76; PULSE 90; TEMP 98.1
--- NOTE | 2018-08-07 18:25 | NUR ---
Pt has been resting on and off throughout the day. She has remained free of pain. Pt is sitting up in the bed watching TV at this time and she denies further needs. Call light within reach.
--- NOTE | 2018-08-07 18:48 | NUR ---
Report given to WERNER Juares.
--- NOTE | 2018-08-07 19:35 | NUR ---
Patient resting in bed, denies pain. Assessment completed. VSS. Bed in lowest, locked position with call light in reach. IVF infusing, iv site looks free of complications. No other needs at this time.
[2018-08-07 20:51] VITALS: BP 136/70; PULSE 101; TEMP 98.1
[2018-08-07 23:56] VITALS: BP 127/74; PULSE 52; TEMP 97.9
[2018-08-08 03:44] VITALS: BP 15/82; BP 151/82; PULSE 79; TEMP 98.3
--- NOTE | 2018-08-08 05:22 | NUR ---
Patient slept for most of the night. No complaints of pain .VSS, IV antibiotics administered. Able to ambulate with 1 assist. No other needs at this time.
[2018-08-08 06:09] LABS: MEAN CELL VOLUME 84 fl (80.0-100.0); MEAN CORPUSCULAR HGB CONC 32 g/dl (33.0-37.0); MEAN PLATELET VOLUME 9.4 fl (7.4-10.4); PLATELET COUNT 394 K/mm3 (130-400); RED BLOOD COUNT 3.68 M/mm3 (4.10-5.30); REDCELL DISTRIBUTION WIDTH-CV 15.1 % (11.5-14.5)
[2018-08-08 06:13] LABS: HEMOGLOBIN 9.8 g/dl (12.5-16.0); MEAN CORPUSCULAR HEMOGLOBIN 27 pg (27.0-31.0)
[2018-08-08 06:20] LABS: CALCIUM 7.5 mg/dL (8.4-10.2); CREATININE, serum 0.53 mg/dL (0.52-1.25); POTASSIUM 3.7 mmol/L (3.4-5.0)
[2018-08-08 06:55] LABS: BAND 7 % (0-10); EOSINOPHIL 1 % (0-4); LYMPHOCYTE 7 % (20.0-51.0); METAMYELOCYTE 1 % (0-0); NEUTROPHILS 78 % (42.0-75.2); PLATELET ESTIMATE NORMAL (NORMAL)
[2018-08-08 06:56] LABS: HYPOCHROMIA 2+
[2018-08-08 08:47] VITALS: BP 146/87; PULSE 93; TEMP 98.4
--- NOTE | 2018-08-08 11:40 | NUR ---
HOSPITALIST CARE TEAM ROUNDING. SEE ORDERS.
[2018-08-08] MEDS ORDERED: NORVASC 10MG10 MG PO (11:42)
--- NOTE | 2018-08-08 11:47 | NUR ---
SW met with patient to present IM and verbally discuss the contents. Patient was agreeable and signed the form. Patient is dc home today with family support and home health PT/OT/SN through [facility].
[2018-08-08] MEDS ORDERED: ULTRAM 50MG TAB50 MG PO (11:48)
[2018-08-08] MEDS ORDERED: AMOXICILLIN 8751 TAB PO (11:48)
--- NOTE | 2018-08-08 12:26 | NUR ---
PT IS ON 2LNC SATS ARE 99%. O2 NOT TITRATED BECAUSE SHE STATES SHE WEARS IT AT 2 AT HOME.
--- NOTE | 2018-08-08 15:00 | NUR ---
PATIENT DISCHARGING HOME VIA WHEELCHAIR TO PERSONAL VEHICLE WITH DAUGHTER. GAVE DISCHARGE INSTRUCTIONS & FOLLOW UP APTS. ANTIBIOTIC SCRIPT SENT TO PHARMACY. DC'D LEFT FORARM IV, COVERED WITH GAUZE & COBAN. PERSONAL BELONGINGS PACKED. PATIENT DISCHARGED.
== END 2018-08-08 15:00 | disposition home health service (06) | DRG 194 ==
LOC: COL.ER 13:43 → MEDICAL 16:46
PROVIDERS: Emergency Medicine; Nurse Practitioner Family; ADMIT Internal Medicine
DX: J18.9 Pneumonia, unspecified organism (principal); J44.0 Chronic obstructive pulmonary disease with (acute) lower respiratory infection; J44.1 Chronic obstructive pulmonary disease with (acute) exacerbation; E87.1 Hypo-osmolality and hyponatremia; E87.4 Mixed disorder of acid-base balance; E44.0 Moderate protein-calorie malnutrition; Z68.1 Body mass index [BMI] 19.9 or less, adult; J96.11 Chronic respiratory failure with hypoxia; I48.91 Unspecified atrial fibrillation; I10 Essential (primary) hypertension; Z87.891 Personal history of nicotine dependence
CPT/HCPCS: 99222-AI; 99232-AI; 99239; A4216; J0456; J0692; J0696; J1940; J1956; J2930; J3370; J7030; J7050; J7512

== ENCOUNTER 2018-11-22 08:25 | Inpatient (IN) | payer MEDICARE, BC ==
[~2018-11-22] VITALS: Ht 162.6 cm; Wt 45.6 kg
[2018-11-22] VITALS (16 sets, daily range): BP systolic 102–160; BP diastolic 58–97; PULSE 76–110; TEMP 97.9–98.6
[~2018-11-22 08:25] MED LIST changes: +AMOXICILLIN 8751 TAB PO
[2018-11-22] MEDS ORDERED: FISH OIL 1000MG1 CAP PO (09:46)
[2018-11-22] MEDS ORDERED: FLONASEALLERGY NS (09:46)
[2018-11-22] MEDS ORDERED: NORCO 325 MG-51 TAB PO (09:47)
[2018-11-22] MEDS ORDERED: HCTZ 25MG TAB25 MG PO (09:47)
[2018-11-22] MEDS ORDERED: PRESERVISION AREDS PO (09:51)
[2018-11-22] MEDS ORDERED: PROMETHAZINE-CODEINE (09:54)
[2018-11-22 10:02] LABS: INR 1.7 (0.8-3.0); PROTHROMBIN TIME 19.2 SECONDS (9.7-12.8)
[2018-11-22 10:05] LABS: POTASSIUM 3.9 mmol/L (3.4-5.0)
[2018-11-22] MEDS ORDERED: BETAPACE160 MG (10:14)
[2018-11-22 10:39] LABS: THYROID STIMULATING HORMONE 0.616 uIU/mL (0.465-4.680)
--- NOTE | 2018-11-22 10:52 | NUR ---
pt in rm 14 post cardioversion. Cardioversion unsuccessful after 2 shocks so pt plan is to be admitted to floor. Vitals stable and pt resting comfortably in bed at this time. Will continue to monitor.
[2018-11-22 11:01] LABS: POTASSIUM 3.9 mmol/L (3.4-5.0)
[2018-11-22 11:10] LABS: ALBUMIN 3.7 gm/dL (3.5-5.0); BILIRUBIN,TOTAL 0.5 mg/dL (0.0-1.0); CALCIUM 10.2 mg/dL (8.4-10.2); CREATININE, serum 0.65 (0.52-1.25); MAGNESIUM 1.3 mg/dL (1.6-2.3); TOTAL PROTEIN 8.3 gm/dL (6.4-8.2)
--- NOTE | 2018-11-22 17:20 | NUR ---
Pt vitals remained stable post cardioversion with rhythm still in afib. no signs of discomfort present. Tolerating food and fluid po without issue. Voided twice. Pt safely wheeled up to med floor rm 316. Hand off given to Fan CALDERA.
--- NOTE | 2018-11-22 17:34 | NUR ---
Pt arrived to room 316 via with express nurse. Pt able to transfer from the WC to the floor bed without difficutly. Oriented to room and call light system. Pt is resting quietly in the bed at this time and she denies further needs. Call light within reach, will continue to monitor.
--- NOTE | 2018-11-22 18:51 | NUR ---
Since arriving to the floor the pt has been resting. She is sitting up in the bed watching TV at this time and she denies further needs. Call light within reach. Report given to WERNER Farnk.
--- NOTE | 2018-11-23 04:32 | NUR ---
PT HAD UNEVENTFUL NOC. PT DID VOICE CONSERN ABOUT BEING DISCHARGED AND WAS SAYING SHE LIVES ALONE AND HER CAT IS THERE UNATTENDED TO. PT HASNT VOICED ANY OTHER CONSERS OR ISSUES OVERNIGHT. REAMINED PLEASENT AND COOPERATIVE WITH CARES.
[2018-11-23 05:11] VITALS: BP 158/78; PULSE 69; TEMP 98.4
[2018-11-23 07:20] LABS: ALBUMIN 3.6 gm/dL (3.5-5.0); BILIRUBIN,TOTAL 0.5 mg/dL (0.0-1.0); CALCIUM 9.3 mg/dL (8.4-10.2); CREATININE, serum 0.63 (0.52-1.25); POTASSIUM 4.3 mmol/L (3.4-5.0); TOTAL PROTEIN 7.9 gm/dL (6.4-8.2)
[2018-11-23 08:11] VITALS: BP 121/71; PULSE 82; TEMP 97.8
--- NOTE | 2018-11-23 08:28 | NUR ---
Pt is awake and A/Ox4, sitting up in bed. She states her chronic pain is a 5/10. Pt given heraclio. ultram. Saline lock to right AC is free of complications. Heart remains irregular, AFIB per tele. Pt remains on 2L O2 per NC (baseline.) Pt denies any needs, will monitor.
[2018-11-23 11:02] VITALS: BP 115/65; PULSE 72; TEMP 97.8
--- NOTE | 2018-11-23 12:06 | NUR ---
Pt continues to rest in bed, she denies pain or any needs.
--- NOTE | 2018-11-23 14:30 | NUR ---
Report received from WERNER Bates. No pain or needs reported and the call light is in place.
[2018-11-23 15:30] VITALS: BP 126/73; PULSE 75; TEMP 98.1
--- NOTE | 2018-11-23 15:39 | NUR ---
SW met with patient to discuss discharge planning. Patient lives alone in [facility] however her daughters are close and one comes over every night to help her. Patients PCP is Dr Turner and she obtains her medications from [facility]. Patient receives HH PT/SN from [facility] . SW called and informed them that patient is in the hosptial. Patient uses o2 and a walker in the home. Patient has dpoa completed as well and reports she has given it to the hospital in the past. MYONR will continue to follow.
--- NOTE | 2018-11-23 19:49 | NUR ---
No change throughout the remainder of the shift. Report given to WERNER Frank to resume care.
[2018-11-23 20:06] VITALS: BP 148/67; PULSE 123; TEMP 98.1
[2018-11-24] VITALS (7 sets, daily range): BP systolic 128–167; BP diastolic 50–84; PULSE 61–92; TEMP 97.7–98.5
[2018-11-24 06:43] LABS: ALBUMIN 3.3 gm/dL (3.5-5.0); BILIRUBIN,TOTAL 0.4 mg/dL (0.0-1.0); CALCIUM 9.2 mg/dL (8.4-10.2); CREATININE, serum 0.7 (0.52-1.25); POTASSIUM 4.5 mmol/L (3.4-5.0); TOTAL PROTEIN 7.6 gm/dL (6.4-8.2)
--- NOTE | 2018-11-24 07:00 | NUR ---
PT HAD UNEVENTFUL NOC. NO ISSUES OR CONSERNS VOICED. REMAINED HOPEFUL THAT AMNIO WOULD CONVERT HER BACK TO NORMAL SINUS SO SHE COULD DC SOMETIME. PT PLEASANT AND COOPERATIVE WITH CARES.
--- NOTE | 2018-11-24 08:15 | NUR ---
Patient alert and oriented, answers questions appropriately. See assessment. Heart tones strong and uneven. No c/o chest pain, pressure or discomfort. Lungs with inspiratory wheezes noted throughout all lobes, does not clear with cough. Oxygen at 2l/nc per patient norm. C/o SOA with exertion. No other c/o at this time.
[2018-11-24 10:27] LABS: BASO % 0.2 % (0.0-2.0); EOS # 0.3 (0.0-0.7); EOS % 2.2 % (0-4.0); GRAN # 11.3 (1.4-6.5); LYMPH % 7.3 % (20.0-51.0); MEAN CELL VOLUME 85 fl (80.0-100.0); MEAN CORPUSCULAR HEMOGLOBIN 26 pg (27.0-31.0); MEAN CORPUSCULAR HGB CONC 31 g/dl (33.0-37.0); MEAN PLATELET VOLUME 10.5 fl (7.4-10.4); MONO # 1.1 (0.1-0.6); MONO % 7.6 % (1.7-9.3); PLATELET COUNT 451 K/mm3 (130-400); RED BLOOD COUNT 4.18 M/mm3 (4.10-5.30); REDCELL DISTRIBUTION WIDTH-CV 15.3 % (11.5-14.5)
[2018-11-24 10:28] LABS: HEMATOCRIT 35.4 % (37.0-47.0)
--- NOTE | 2018-11-24 20:30 | NUR ---
Initial shift assessment done- denies pain at this time- visiting with family,, Tele on- afib,controlled rate,o2 at 2L/nc, Up to bathroom with assistance- states she wants to use BSC during the night due to SOB with exertion,
[2018-11-25] VITALS (7 sets, daily range): BP systolic 117–156; BP diastolic 62–90; PULSE 75–105; TEMP 97.7–99.9
--- NOTE | 2018-11-25 06:00 | NUR ---
Quiet night- slept well. VSS, Up this morning to BSC- tolerated well.
[2018-11-25 08:33] LABS: ALANINE AMINOTRANSFERASE < 6 U/L (9-52); ALBUMIN 3.4 gm/dL (3.5-5.0); ALKALINE PHOSPHATASE 75 U/L (50-136); ANION GAP 9 mmol/L (7-16); AST,SGOT 21 U/L (15-37); BILIRUBIN,TOTAL 0.5 mg/dL (0.0-1.0); BLOOD UREA NITROGEN 18 mg/dL (7-17); CALCIUM 8.8 mg/dL (8.4-10.2); CARBON DIOXIDE 34 mmol/L (22-30); CHLORIDE 91 mmol/L (98-107); CREATININE, serum 0.83 (0.52-1.25); GLUCOSE 136 mg/dL (74-106); POTASSIUM 3.8 mmol/L (3.4-5.0); SODIUM 134 mmol/L (137-145); TOTAL PROTEIN 7.7 gm/dL (6.4-8.2)
--- NOTE | 2018-11-25 18:22 | NUR ---
END OF SHIFT NOTE. PATIENT A&O X4 WITH SOME FOREGETFULNESS. IRREGULAR HEART RHYTHM WITH TACHYCARDIA NOTED, OTHERWISE VSS. GENERALIZED WEAKNESS NOTED. PATIENT STATES THAT SHE HAS SOB WITH ACTIVITY. SHALLOW BREATHING NOTED. PATIENT HAS PRODUCTIVE COUGH OF THICK GREEN MUCOUS. 2 OF 3 SPUTUM SAMPLES COLLECTED. RIGHT AC TO INT.
--- NOTE | 2018-11-25 19:17 | NUR ---
Report received from WERNER Pereyra
--- NOTE | 2018-11-25 21:49 | NUR ---
Resting in bed with daughters at bedside. Assessment complete. Lungs wheezing present on inspiration and expiration. Denies any shortness of breath. Heart sounds normal. Bowels active x4. Pulses strong. No edema noted. INT to left forearm and right AC flushed without complications. Reports 5/10 back pain. Provided scheduled ultram. Bruising present to right forarm and left elbow. Reports "from lab draws." Denies needs at this time. Call light in reach. Will monitor.
[2018-11-26] VITALS (8 sets, daily range): BP systolic 117–133; BP diastolic 43–67; PULSE 60–91; TEMP 98.3–98.9
--- NOTE | 2018-11-26 00:30 | NUR ---
Resting in bed. Denies needs. Call light in reach.
--- NOTE | 2018-11-26 04:00 | NUR ---
Resting in bed. Denies needs. Call light in reach.
--- NOTE | 2018-11-26 06:15 | NUR ---
Patient had uneventful night. Resting in bed this AM. Denies needs. Call light in reach.
[2018-11-26 06:37] LABS: ALBUMIN 3.3 gm/dL (3.5-5.0); BILIRUBIN,TOTAL 0.8 mg/dL (0.0-1.0); CALCIUM 8.6 mg/dL (8.4-10.2); CREATININE, serum 1.08 (0.52-1.25); POTASSIUM 4.2 mmol/L (3.4-5.0); TOTAL PROTEIN 7.4 gm/dL (6.4-8.2)
--- NOTE | 2018-11-26 07:14 | NUR ---
Report given to WERNER Johnson
--- NOTE | 2018-11-26 08:30 | NUR ---
patient down for cardioversion at this time.
--- NOTE | 2018-11-26 09:30 | NUR ---
Patient back from cardioversion. Sinus eyad (50s), A&O. Patient O2 increased to 3L NC, sats in the upper 80s. Denies needs at this time. Tolerating water.
--- NOTE | 2018-11-26 09:45 | NUR ---
Patient back from cardioversion procedure, no complications. Shift assessment complete. VSS stable, on 2LNC, bumped to 3L, sats in upper 80s. Patient states she is going home today and "has plans and company coming tonight". Denies SOB, pain, palpitations, N/V. Patient has macular degeneration, hard for her to see. Patient previous diet resumed.
--- NOTE | 2018-11-26 16:03 | NUR ---
SW requested PT/OT from hospitalist.
--- NOTE | 2018-11-26 18:57 | NUR ---
Patient had succesful cardioversion this morning. Patient has no other complaints other than being ready to discharge. Patient has been under the impression she is discharging today. No orders or plans discussed.
--- NOTE | 2018-11-26 21:17 | NUR ---
Resting in bed. Assessment complete. Right lower lobe diminished otherwise clear. Heart sounds normal. Bowels active x4. Pulses strong throughout. Bilateral arms bruising present. Coccyx area red/blanchable. Educated on repositioning. Denies pain. Denies needs at this time. Call light in reach.
[2018-11-27] VITALS (55 sets, daily range): BP systolic 115–154; BP diastolic 55–89; PULSE 68–114; TEMP 97.8–98.7; O2SAT 66–98
--- NOTE | 2018-11-27 00:44 | NUR ---
Resting in bed. denies needs. Denies pain. Call light in reach.
--- NOTE | 2018-11-27 04:24 | NUR ---
Resting in bed. Call light in reach.
--- NOTE | 2018-11-27 06:20 | NUR ---
Patient had uneventful night. Resting in bed this AM. Call light in reach.
[2018-11-27 06:28] LABS: MEAN CELL VOLUME 84 fl (80.0-100.0); MEAN CORPUSCULAR HGB CONC 32 g/dl (33.0-37.0); MEAN PLATELET VOLUME 10.2 fl (7.4-10.4); RED BLOOD COUNT 3.44 M/mm3 (4.10-5.30); REDCELL DISTRIBUTION WIDTH-CV 15.4 % (11.5-14.5)
[2018-11-27 06:33] LABS: HEMATOCRIT 28.9 % (37.0-47.0); HEMOGLOBIN 9.1 g/dl (12.5-16.0); MEAN CORPUSCULAR HEMOGLOBIN 26 pg (27.0-31.0); PLATELET COUNT 311 K/mm3 (130-400)
[2018-11-27 06:44] LABS: ALANINE AMINOTRANSFERASE < 6 U/L (9-52); ALBUMIN 2.8 gm/dL (3.5-5.0); ALKALINE PHOSPHATASE 73 U/L (50-136); ANION GAP 8 mmol/L (7-16); AST,SGOT 24 U/L (15-37); BILIRUBIN,TOTAL 0.5 mg/dL (0.0-1.0); BLOOD UREA NITROGEN 26 mg/dL (7-17); CALCIUM 8.2 mg/dL (8.4-10.2); CARBON DIOXIDE 31 mmol/L (22-30); CHLORIDE 96 mmol/L (98-107); CREATININE, serum 0.76 (0.52-1.25); GLUCOSE 110 mg/dL (74-106); MAGNESIUM 1.4 mg/dL (1.6-2.3); POTASSIUM 3.9 mmol/L (3.4-5.0); SODIUM 135 mmol/L (137-145); TOTAL PROTEIN 6.5 gm/dL (6.4-8.2)
[2018-11-27 06:55] LABS: C-REACTIVE PROTEIN 21.8 mg/dL (0.0-0.9)
[2018-11-27 07:05] LABS: BAND 3 % (0-10); EOSINOPHIL 1 % (0-4); LYMPHOCYTE 3 % (20.0-51.0); NEUTROPHILS 87 % (42.0-75.2); PLATELET ESTIMATE NORMAL (NORMAL)
--- NOTE | 2018-11-27 07:16 | NUR ---
Report given to WERNER Johnson
--- NOTE | 2018-11-27 08:38 | NUR ---
Patient resting in bed upon entry. Patient assisted to bathroom. Lung sounds coarse on right side, clear on left, heart sounds normal, denies SOB unless getting up. No edema noted, hands are cold, skin warm. Pulses strong bilaterally. Patient does have a productive cough with yellow sputum. Breakfast ordered and call light within reach.
--- NOTE | 2018-11-27 16:18 | NUR ---
MYNOR and SW student met with the patient to review discharge plan and to discuss home with home health vs post-acute rehab. The patient reports that she prefers to return home with home health through [facility]. She states that she has been to [facility] for 36 days in the past and knows the exercises to do at home. She states that she has meals on wheels set up and that her daughters check in on her frequently. The patient's oxygen dropped and she is now requiring 4 liters. SW to continue to follow.
--- NOTE | 2018-11-27 17:14 | NUR ---
Patients O2 was in the 80s when the aide and I were checking vital signs. Called respiratory to check. Reading in the 80s also. bumped her to 4L NC. she walked with therapy and was short of air when returning. Patient complaining of "being gassy", requesting Gas-X. Patient is belching frequently. Hasn't eaten lunch, "i'll wait until i feel a little better, I ate a late breakfast". call light within reach.
--- NOTE | 2018-11-27 18:26 | NUR ---
Patient complaining of being short of air but wants her O2 turned down from 4L to 2 1/2 L. Explained to her that O2 sats were in the 80s so we needed to turn it up and monitor from there. Feels better after mylicon. Patient denies wanting food, has no appetite.
--- NOTE | 2018-11-27 19:02 | NUR ---
Report received from WERNER Johnson
--- NOTE | 2018-11-27 19:31 | NUR ---
Resting in bed. Reports shortness of breath . Assessed patient. Right lung all crockett crackles. Left lung all crockett diminished. Deep, labored breathing present. 84% on 4 liters, increased to 5 liters 86%. Respiratory contacted for breathing treatment. In room with patient. Heart sounds normal. Bowels active x4. Pulses strong throughout. No edema noted. Denies pain at this time. Will closely monitor.
--- NOTE | 2018-11-27 19:58 | NUR ---
Spoke with PHAN Fritz. Call Dr. Carias from pul. Per Dr. Carias, transfer to ICU, place on bipap on at least 14 over 5, draw ABG and BNP, and chest xray 1 view. Respiratory and house supervisior notified.
--- NOTE | 2018-11-27 20:20 | NUR ---
Patient has increased anxiety with bipap. One time dose of ativan 0.5 mg obtained.
--- NOTE | 2018-11-27 20:49 | NUR ---
PT TRIED ON BIPAP ABOUT 30 MIN AGO. PT WAS UNABLE TO TOLERATE. PT REFUSED AT THIS TIME.
--- NOTE | 2018-11-27 20:51 | NUR ---
Patient refusing Bipap at this time. Verbal order for ativan 0.5mg IV now and lasix 20mg IV given. Daughters at patient bedside. Agrees to transfer to ICU.
--- NOTE | 2018-11-27 21:51 | NUR ---
Report given to WERNER Barth
--- NOTE | 2018-11-27 22:14 | NUR ---
Patient transferred to ICU.
[2018-11-27 23:27] LABS: ARTERIAL BLD GAS O2 SATURATION 87.5 % (92-100); ARTERIAL BLD GAS TCO2 CT 31.3; ARTERIAL BLOOD GAS BASE EXCESS 2.9 (-2-2); ARTERIAL BLOOD GAS HCO3 29.6 meq/L (22-26); ARTERIAL BLOOD GAS PCO2 55.4 mmHg (35-45); ARTERIAL BLOOD GAS pH 7.35 (7.35-7.45)
[2018-11-28] VITALS (386 sets, daily range): BP systolic 109–184; BP diastolic 52–92; PULSE 54–70; TEMP 95.4–98.3; O2SAT 57–100
[2018-11-28 06:07] LABS: MEAN CELL VOLUME 85 fl (80.0-100.0); MEAN CORPUSCULAR HGB CONC 31 g/dl (33.0-37.0); MEAN PLATELET VOLUME 11.1 fl (7.4-10.4); PLATELET COUNT 321 K/mm3 (130-400); RED BLOOD COUNT 3.77 M/mm3 (4.10-5.30); REDCELL DISTRIBUTION WIDTH-CV 15.2 % (11.5-14.5)
[2018-11-28 06:10] LABS: HEMATOCRIT 31.9 % (37.0-47.0); HEMOGLOBIN 9.9 g/dl (12.5-16.0); MEAN CORPUSCULAR HEMOGLOBIN 26 pg (27.0-31.0)
[2018-11-28 06:21] LABS: CALCIUM 8.4 mg/dL (8.4-10.2); CREATININE, serum 0.64 (0.52-1.25); MAGNESIUM 1.6 mg/dL (1.6-2.3); POTASSIUM 3.9 mmol/L (3.4-5.0)
--- NOTE | 2018-11-28 07:10 | NUR ---
Bedside report received from Otto Barth.
[2018-11-28 07:53] LABS: LYMPHOCYTE 5 % (20.0-51.0); NEUTROPHILS 94 % (42.0-75.2); PLATELET ESTIMATE NORMAL (NORMAL)
--- NOTE | 2018-11-28 08:00 | NUR ---
Assessment completed. Pt states she feels better. Pt Alert, oriented to person and place. VSS. Pt has some SOB while turning in bed. Remains on 5L/oxymask. Denies any pain at this time. Refuses breakfast but would like the boost drink instead. Call light in reach.
--- NOTE | 2018-11-28 14:45 | NUR ---
Report given to Apryl at 1417. Pt transferred to room 358 via wheelchair with O2 at 1445. Updated Yahaira, medical floor RN of pt status. Pt tolerated walk to bed from wheelchair.
--- NOTE | 2018-11-28 15:32 | NUR ---
Notified Pt's dtrAlondra of pt's transfer to medical floor.
--- NOTE | 2018-11-28 17:20 | NUR ---
Received report from ICU nurse before pt was transferred to the medical floor. Pt arrived and assessment charted. Pt requested to use a nasal canula instead of the oxymask at 4 L. Oriented to room, will continue to monitor.
--- NOTE | 2018-11-28 17:59 | NUR ---
Pt in bed and resting comfortably on 4 L O2 via nasal canula. Some confusion was noted about her plan of care, given that she thought she was going home tonight instead of just being transferred to the medical floor. Her supper was ordered. Pt stated she had no pain or any needs at this time. Will continue to monitor until giving bedside report to the nightshift nurse.
--- NOTE | 2018-11-28 20:50 | NUR ---
pt resting in bed with family at bedside. pt is alert and oriented but forgetful. pt shows signs of anxiety, PRN meds given. No pain. no SOA. pt on 4L via NC. O2 SAT at 94%. VSS. IV flushes well, no redness, no swelling. droplet precautions in place. no needs at this time. call light in reach.
[2018-11-29 03:39] VITALS: BP 158/85; PULSE 66
--- NOTE | 2018-11-29 03:48 | NUR ---
pt )2 sat continued to drop to 88%. increased pt O2 to 5L via NC. pt O2 sat now at 93%. pt reports no SOA. other vitals stable
--- NOTE | 2018-11-29 05:56 | NUR ---
pt had an uneventful night. reports no pain. no SOA. pt on 5L via NC, O2 sat at 95%. assited to BSC throughout night. pt reported feeling like she needed to urinate but couldnt. pt IV flushes well-no swelling or redness. no needs at this time- call light in reach
[2018-11-29 06:52] LABS: MEAN CELL VOLUME 84 fl (80.0-100.0); MEAN CORPUSCULAR HGB CONC 31 g/dl (33.0-37.0); MEAN PLATELET VOLUME 10.4 fl (7.4-10.4); RED BLOOD COUNT 3.54 M/mm3 (4.10-5.30)
[2018-11-29 06:54] LABS: HEMATOCRIT 29.6 % (37.0-47.0); HEMOGLOBIN 9.3 g/dl (12.5-16.0); MEAN CORPUSCULAR HEMOGLOBIN 26 pg (27.0-31.0); PLATELET COUNT 439 K/mm3 (130-400)
[2018-11-29 06:59] LABS: CALCIUM 8.6 mg/dL (8.4-10.2); CREATININE, serum 0.67 (0.52-1.25); POTASSIUM 3.5 mmol/L (3.4-5.0)
--- NOTE | 2018-11-29 07:09 | NUR ---
report given to WERNER Lamas. pt sleeping
[2018-11-29 07:14] VITALS: BP 158/81; PULSE 65; TEMP 98.5
[2018-11-29 07:22] LABS: LYMPHOCYTE 3 % (20.0-51.0); NEUTROPHILS 95 % (42.0-75.2); PLATELET ESTIMATE INCREASED (NORMAL)
[2018-11-29 07:23] LABS: TARGET CELLS 1+
[2018-11-29 07:24] LABS: TOXIC GRANULATION PRESENT
--- NOTE | 2018-11-29 08:00 | NUR ---
Initial assessment completed at this time. No pain reported at this time. The call light is in reach and bed alarm is in place.
[2018-11-29 11:44] VITALS: BP 180/71; PULSE 65; TEMP 98.4
--- NOTE | 2018-11-29 12:50 | NUR ---
This nurse called and spoke to the patient's daughter about plan for discharge. Family states they are able to take the patient twice daily for IV ABX, times 10 days, to our [facility], only requesting it be no earlier than 0900. MARYLU Bro notified of patient and family request. PICC line being placed at this time. Report given to WERNER Pizano to resume care.
--- NOTE | 2018-11-29 13:24 | NUR ---
MYNOR met with the patient to review discharge plan and to discuss physical therapies recommendation of home health vs SNF and the need for ten days of IV antibiotics, twice a day. The patient reports that she does not want to go to SNF or a swing bed. She states that she wants to return home with home health through [facility]. She states that she has needed IV antibiotics in the past and that she had come to [facility]. The patient reports that she would like to do that again and that her daughters could transport her. The patient requested that MYNOR contact her daughter, Alyce ([phone]). MYNOR contacted Alyce and updated her on the patient's plan. Alyce confirms that she can provide transportation for the patient. SW to contact the Express Unit and get the patient set up for her outpatient IV antibiotics. MYNOR also updated Aida at [facility] of the patient being able to return home tomorrow. Aida reports that she will need to check with her supervisor alteration workroom on if they can provide services to the patient while she is receiving outpatient services. MYNOR to continue to follow.
[2018-11-29] MEDS ORDERED: MAXIPIME2 GM IV (14:11)
--- NOTE | 2018-11-29 15:37 | NUR ---
MYNOR contacted Shanti in the Express unit and faxed her the patient's IV antibiotic script, discharge instructions, and progress note. Shanti reports that she has started an account for the patient. MYNOR will need to send the patient's discharge orders to the [facility] tomorrow, 11/30. MYNOR to continue to follow.
[2018-11-29 16:22] VITALS: BP 161/74; PULSE 98; TEMP 98.2
--- NOTE | 2018-11-29 17:57 | NUR ---
Patient resting in bed, VS stable. 4L NC O2, no reported SOB. PICC line RT upper arm, CDI. Barrier cream applied to sacral area, stage 2 ulcer noted. No further needs expressed from patinet. Contact precautions in place. Call light within reach. Will continue to monitor
[2018-11-29 19:38] VITALS: BP 161/94; PULSE 105; TEMP 98.2
[2018-11-29 22:48] VITALS: BP 185/97; PULSE 111; TEMP 98.2
--- NOTE | 2018-11-30 02:30 | NUR ---
PT HAD ELEVATED B/P THIS NOC. THIS NURSE CALLED ALEXANDER CHISHOLM FOR ORDERS, ALEXANDER STATED TO GIVE MORNING COZAAR AT THIS TIME.
[2018-11-30 04:51] VITALS: BP 163/76; PULSE 61; TEMP 98.4
--- NOTE | 2018-11-30 05:44 | NUR ---
PT HAD UNEVENTFUL NOC. PT VOICED EAGERNESS TO DISCHARGE LATER TODAY AND VOICED EXCITMENT TO SEE HER SHERRY AT HOME. THIS NURSE VISITED WITH FAMILY AT BEDSIDE. ANSWERED QUESTIONS ABOUT TODAYS DISCHARGE. PT DAUGHTER STATED THAT SHE WOULD LIKE A PHONE CALL AHEAD OF TIME WHEN THE TIME WILL BE FOR DISCHARGE IF POSSIBLE AND STATED THAT "THE LATER THE BETTER" SO SHE WILL BE ABLE TO GET TO FACILITY PROMPTLY. PT DAUGHTER ALSO ASKED ABOUT OUT PT INFUSIONS AND WONDERED WHEN WOULD BE THE PTS FIRST ABX DOSE AND WONDERED IF THE PT WOULD BE ABLE TO DO A 9AM-9PM SCHEDULE WITH THE [facility] FOR IV INFUSION. PT AND FAMILY HAD NO OTHER QUESTIONS AT THIS TIME. PT HAD NO C/O PAIN OR N/V/D OVERNIGHT.
[2018-11-30 06:00] LABS: HEMOGLOBIN 10.2 g/dl (12.5-16.0); MEAN CELL VOLUME 83 fl (80.0-100.0); MEAN CORPUSCULAR HEMOGLOBIN 26 pg (27.0-31.0); MEAN CORPUSCULAR HGB CONC 32 g/dl (33.0-37.0); MEAN PLATELET VOLUME 9.9 fl (7.4-10.4); PLATELET COUNT 527 K/mm3 (130-400); RED BLOOD COUNT 3.88 M/mm3 (4.10-5.30); REDCELL DISTRIBUTION WIDTH-CV 15.3 % (11.5-14.5)
[2018-11-30 06:03] LABS: HEMATOCRIT 32.1 % (37.0-47.0)
[2018-11-30 06:15] LABS: CALCIUM 8.8 mg/dL (8.4-10.2); CREATININE, serum 0.68 (0.52-1.25); POTASSIUM 3.8 mmol/L (3.4-5.0)
[2018-11-30 06:36] LABS: ANISOCYTOSIS 1+; HYPOCHROMIA 2+; LYMPHOCYTE 1 % (20.0-51.0); NEUTROPHILS 96 % (42.0-75.2); PLATELET ESTIMATE INCREASED (NORMAL)
--- NOTE | 2018-11-30 07:30 | NUR ---
Pt AAOx3 laying in bed, RT at bedside assessing pt. Meal offered and refused at this time. Serge,RN-Student at bedside as well. Pt repositioned and boosted up in bed, menu/phone/call light within reach. Pt states her daughter will be here later to rock picker for discharge.
[2018-11-30 07:39] VITALS: BP 156/78; PULSE 88; TEMP 98
--- NOTE | 2018-11-30 07:45 | NUR ---
Reported on to Zain CALDERA. Patient lying in bed awake, A&O x3. No pain stated at this time. Able to pass flatus and no nausea. Ecchymosis noted to both arms. PICC line flushed with good blood return. No redness or swelling and tegaderm CDI. Erythema noted to sacral area but is blanchable. Patient requested to use bedside commode with 300ml yellow clear urine output. Repositioned in bed. Bed in loweset position, call light in reach, bed alarm on.
[2018-11-30 11:20] VITALS: BP 186/98; PULSE 107; TEMP 98.5
[2018-11-30 11:44] LABS: ARTERIAL BLD GAS O2 SATURATION 91.4 % (92-100); ARTERIAL BLOOD GAS BASE EXCESS 12.2 (-2-2); ARTERIAL BLOOD GAS HCO3 36.5 meq/L (22-26); ARTERIAL BLOOD GAS PCO2 46.2 mmHg (35-45); ARTERIAL BLOOD GAS PO2 57.4 mmHg (80-100); ARTERIAL BLOOD GAS pH 7.52 (7.35-7.45)
--- NOTE | 2018-11-30 13:48 | NUR ---
Primary nurse was assisted with [id number] patient care by [employer] student Serge Oconnor and [employer] instructor Zee Vines RN-.
[2018-11-30 15:50] LABS: CREATININE, serum 0.95 (0.52-1.25); POTASSIUM 3.7 mmol/L (3.4-5.0)
--- NOTE | 2018-11-30 16:00 | NUR ---
MYNOR and MYNOR student attended clinical rounds. The patient is not ready to discharge today. MYNOR contacted [facility] in [facility] and informed. Shanti requests that the SW call and inform them of when the patient discharges this weekend. MYNOR will still need to fax the patient's discharge orders down to [facility]. . MYNOR also updated [facility]. MYNOR contacted the patient's daughter, Alyce to update. MYNOR informed the patient's daughter that if the patient does discharge tomorrow, 12/01, that the patient's appointment time for her IV antibiotics is at 0800 on Monday and she will need to enter through the ED. The patient's daughter expressed understanding. SW to continue to follow.
[2018-11-30 16:02] VITALS: BP 177/87; PULSE 78; TEMP 98.5
[2018-11-30 20:30] VITALS: BP 155/79; PULSE 93; TEMP 98.3
--- NOTE | 2018-11-30 21:00 | NUR ---
PT REPORTED THAT SHE HAD A VERY LARGE BM DURING DAY SHIFT AND STATED THAT SHE HAD BEEN CONSPIATED PRIOR. VOICED SHE FELT MUCH BETTER THIS EVENING. STATED SHE WAS HAVING SOME BACK PAIN FROM THE HOSPITAL BED WAS GIVEN PAIN MEDS WITH [facility]. PT FAMILY AT BEDSIDE AND ANSWERED QUESTIONS ASKED. NO OTHER ISSUES OR CONSERNS VOICED AT THIS TIME.
[2018-12-01] VITALS (7 sets, daily range): BP systolic 138–164; BP diastolic 74–118; PULSE 81–99; TEMP 97.6–98.5
--- NOTE | 2018-12-01 06:23 | NUR ---
PT HAD UNEVENTFUL NIGHT. PT DIDNT SLEEP WELL THIS NOC. STATED THAT SHE ISNT COMFORTABLE IN THE HOSPITAL BED AND IS NERVOUS ABOUT PEOPLE BEING IN BATHROOM AND SEEING SPOTS ON THE CEILING. REPORTS SEEING INANIMATE THINGS EVERY ONCE IN AWHILE. NO OTHER ISSUES OR CONSERNS VOICED.
--- NOTE | 2018-12-01 06:30 | NUR ---
PT HAD UNEVENTFUL NIGHT. PT DIDNT SLEEP WELL THIS NOC. STATED THAT SHE ISNT COMFORTABLE IN THE HOSPITAL BED AND IS NERVOUS ABOUT PEOPLE BEING IN BATHROOM AND SEEING SPOTS ON THE CEILING. REPORTS SEEING INANIMATE OBJECTS EVERY ONCE IN AWHILE. VOICED WORRY ABOUT ALL THE PILLS THAT SHE IS TAKING AND WANTS TO DISCUSS WITH DOCTOR ABOUT THE NEED FOR ALL THE PILLS AND HOPES SHE DOESNT HAVE TO CONTINUE TAKING SO MANY WHEN GOING HOME.
[2018-12-01 06:47] LABS: HEMOGLOBIN 10.4 g/dl (12.5-16.0); MEAN CELL VOLUME 84 fl (80.0-100.0); MEAN CORPUSCULAR HEMOGLOBIN 26 pg (27.0-31.0); MEAN CORPUSCULAR HGB CONC 31 g/dl (33.0-37.0); MEAN PLATELET VOLUME 10.4 fl (7.4-10.4); PLATELET COUNT 514 K/mm3 (130-400); RED BLOOD COUNT 3.99 M/mm3 (4.10-5.30); REDCELL DISTRIBUTION WIDTH-CV 15.2 % (11.5-14.5)
[2018-12-01 07:04] LABS: CALCIUM 8.9 mg/dL (8.4-10.2); CREATININE, serum 0.79 (0.52-1.25); MAGNESIUM 1.6 mg/dL (1.6-2.3); POTASSIUM 3.7 mmol/L (3.4-5.0)
[2018-12-01 07:13] LABS: HEMATOCRIT 33.3 % (37.0-47.0)
--- NOTE | 2018-12-01 07:32 | NUR ---
REPORT RECEIVED FROM WERNER JIMENES. PT SLEEPIMG SOUNDLY IN BED. CALL LIGHT IN REACH.
[2018-12-01 08:24] LABS: BAND 2 % (0-10); LYMPHOCYTE 6 % (20.0-51.0); NEUTROPHILS 88 % (42.0-75.2); PLATELET ESTIMATE INCREASED (NORMAL)
[2018-12-01 08:25] LABS: HYPOCHROMIA 2+
--- NOTE | 2018-12-01 09:27 | NUR ---
Pt resting in bed alert and oriented. Pt denied pain. Call light in reach.
--- NOTE | 2018-12-01 11:09 | NUR ---
Pt resting in bed w/ no concern. Call light in reach.
--- NOTE | 2018-12-01 13:50 | NUR ---
Pt resting in bed comfortably and denied pain. Call light in reach.
[2018-12-01] MEDS ORDERED: PREDNISONE20 MG PO (17:02)
[2018-12-01] MEDS ORDERED: NORVASC 5MG5 MG/TAB PO ×2 (17:02)
[2018-12-01] MEDS ORDERED: CORDARONE200 MG/TAB PO ×2 (17:06)
--- NOTE | 2018-12-01 18:31 | NUR ---
Pt's daughter contacted to inform pt's discharge order and will come in around 1900 tonight to pick her up. Pt's outpt antibiotics schedule set up from tomorrow 8AM through [facility]. Pt will recieve Maxipine dose now, so she can go home tonight. Pt denied pain. Call light in reach. No concern.
--- NOTE | 2018-12-01 20:00 | NUR ---
PT FAMILY SHOWED UP TO REGULATORY PRODUCT MANAGER PT TO TAKE HER HOME. PT VOICED WORRY ABOUT BEING AT HOME ALONE AND NOT BEING ABLE TO WALK TO BATHROOM. PT CONTINUES TO USE BEDSIDE COMMODE IN ROOM. PT DAUGHTER STATED THAT SHE UNABLE TO STAY WITH HER MOTHER AND MOTHER WOULD BE UNABLE TO BE AT HOME ALONE. THIS NURSE PROVIDED PT DAUGHTER HOME HEALTH CARE FACILITIES AND PHONE NUMBERS PER HER REQUEST. HOUSE SUPERVISIOR CAME AND VISITED WITH PT FAMILY AND PT. ALEXANDER CHISHOLM INFORMED OF SITUATION. PT DECIDED TO STAY THE NIGHT UNTIL ARRANGEMENTS HAVE BEEN MADE FOR PT TO HAVE SOMEONE AT HOME TO HELP HER.
[2018-12-02 04:16] VITALS: BP 151/82; PULSE 83
--- NOTE | 2018-12-02 06:24 | NUR ---
PT HAD UNEVENTFUL NOC. APPEARED TO HAVE SLEPT WELL.
[2018-12-02 08:39] VITALS: BP 142/75; PULSE 82; TEMP 97.9
--- NOTE | 2018-12-02 09:05 | NUR ---
Pt is sleeping soundly in bed. She remains on 2L O2 per NC.
--- NOTE | 2018-12-02 09:59 | NUR ---
Pt is awake and A/Ox4. She denies pain or discomfort. PICC line to right upper arm is free of complications. Pt remains on 2L O2 per NC, resp. are even and unlabored. Pt states she is ready to go home today, stating that she now has help once arriving home. Pt denies any other needs.
[2018-12-02 10:17] LABS: BASO % 0.1 % (0.0-2.0); EOS # 0.1 (0.0-0.7); EOS % 0.9 % (0-4.0); GRAN # 13.6 (1.4-6.5); GRAN % 84.8 % (42.2-75.2); HEMOGLOBIN 10.6 g/dl (12.5-16.0); LYMPH # 0.8 (1.2-3.4); LYMPH % 5.2 % (20.0-51.0); MEAN CELL VOLUME 83 fl (80.0-100.0); MEAN CORPUSCULAR HEMOGLOBIN 26 pg (27.0-31.0); MEAN CORPUSCULAR HGB CONC 32 g/dl (33.0-37.0); MEAN PLATELET VOLUME 10.1 fl (7.4-10.4); MONO # 1.1 (0.1-0.6); MONO % 6.9 % (1.7-9.3); PLATELET COUNT 481 K/mm3 (130-400); RED BLOOD COUNT 4.03 M/mm3 (4.10-5.30); REDCELL DISTRIBUTION WIDTH-CV 15.3 % (11.5-14.5)
[2018-12-02 10:23] LABS: HEMATOCRIT 33.6 % (37.0-47.0)
[2018-12-02 10:29] LABS: CALCIUM 8.8 mg/dL (8.4-10.2); CREATININE, serum 0.8 (0.52-1.25); POTASSIUM 4.3 mmol/L (3.4-5.0)
--- NOTE | 2018-12-02 10:37 | NUR ---
Pt is sleeping soundly in bed.
[2018-12-02 12:20] VITALS: BP 157/87; PULSE 96; TEMP 98.1
[2018-12-02] MEDS ORDERED: CORDARONE200 MG/TAB PO (12:21)
[2018-12-02] MEDS ORDERED: NORVASC 5MG5 MG/TAB PO (13:29)
--- NOTE | 2018-12-02 13:56 | NUR ---
Pt's daughter called to let her know that discharge order and paperwork was ready, no answer, message left. Pt dressed and belongings gathered.
--- NOTE | 2018-12-02 14:43 | NUR ---
Pt was discharged home with home health services. All discharge instructions were reviewed with pt, pt's daughter Alondra, and caregiver. All expressed understanding and denied questions. New prescriptions sent to pharm. PICC line remained in place for outpt antibiotics. Pt to return tonight at 1999 to ED ([facility] closed for weekend) and then in [facility] 12/03 to [facility]. Pt was escorted out of facility by staff.
== END 2018-12-02 14:47 | disposition home or self-care (01) | DRG 308 ==
LOC: COL.CAR 08:25 → ICU 13:06 → MEDICAL 13:06 → COL.CAR 17:35 → MEDICAL 19:00 → ICU 11-27 20:04 → MEDICAL 11-28 15:59
PROVIDERS: Hospitalist; Internal Medicine; Internal Medicine Critical Care Medicine; Nurse Practitioner; Nurse Practitioner Family; Physician Assistant; ADMIT Internal Medicine Cardiovascular Disease
PROC: 5A2204Z Restoration of Cardiac Rhythm, Single (ICD-10-PCS; principal; 2018-11-22)
PROC: 5A2204Z Restoration of Cardiac Rhythm, Single (ICD-10-PCS; 2018-11-26)
DX: I48.0 Paroxysmal atrial fibrillation (principal); J96.21 Acute and chronic respiratory failure with hypoxia; J15.1 Pneumonia due to Pseudomonas; E44.0 Moderate protein-calorie malnutrition; Z68.1 Body mass index [BMI] 19.9 or less, adult; E87.1 Hypo-osmolality and hyponatremia; E87.3 Alkalosis; J44.0 Chronic obstructive pulmonary disease with (acute) lower respiratory infection; I10 Essential (primary) hypertension; I70.1 Atherosclerosis of renal artery; E78.5 Hyperlipidemia, unspecified; Z87.891 Personal history of nicotine dependence; I27.20 Pulmonary hypertension, unspecified; J45.909 Unspecified asthma, uncomplicated; E83.42 Hypomagnesemia; E87.8 Other disorders of electrolyte and fluid balance, not elsewhere classified
CPT/HCPCS: OP; 99232-AI; 99233-AI; 99239; A4216; C1751; J0692; J1940; J2060; J2704; J2920; J3475; J7030; J7050; J7512

== ENCOUNTER 2018-12-02 19:25 | Outpatient (RCR) | payer MEDICARE, BC ==
[~2018-12-02] VITALS: Ht 162.6 cm; Wt 45.3 kg
[~2018-12-02 19:25] MED LIST changes: +BETAPACE160 MG; +CORDARONE200 MG/TAB PO; +FISH OIL 1000MG1 CAP PO; +FLONASEALLERGY NS; +NORCO 325 MG-51 TAB PO; +PRESERVISION AREDS PO; +PROMETHAZINE-CODEINE
[2018-12-03 08:00] VITALS: BP 131/60; PULSE 74; TEMP 98.1
[2018-12-03 18:43] VITALS: BP 150/87; PULSE 94; TEMP 98.4
[2018-12-04 07:58] LABS: MEAN CELL VOLUME 82 fl (80.0-100.0); MEAN CORPUSCULAR HEMOGLOBIN 26 pg (27.0-31.0); MEAN CORPUSCULAR HGB CONC 32 g/dl (33.0-37.0); MEAN PLATELET VOLUME 9.7 fl (7.4-10.4); PLATELET COUNT 565 K/mm3 (130-400); RED BLOOD COUNT 4.23 M/mm3 (4.10-5.30); REDCELL DISTRIBUTION WIDTH-CV 15.8 % (11.5-14.5)
[2018-12-04 07:59] LABS: HEMATOCRIT 34.5 % (37.0-47.0)
[2018-12-04 08:02] VITALS: BP 143/70; PULSE 90; TEMP 97.3
[2018-12-04 08:08] LABS: CALCIUM 9.7 mg/dL (8.4-10.2); CREATININE, serum 0.77 (0.52-1.25)
[2018-12-04 09:04] LABS: BAND 9 % (0-10); LYMPHOCYTE 5 % (20.0-51.0); NEUTROPHILS 83 % (42.0-75.2); PLATELET ESTIMATE INCREASED (NORMAL)
[2018-12-04 18:43] VITALS: BP 146/98; PULSE 92; TEMP 97.5
[2018-12-05 07:53] VITALS: BP 130/69; PULSE 98; TEMP 97.9
[2018-12-05 18:43] VITALS: BP 129/74; PULSE 85; TEMP 97.1
[2018-12-06 07:52] VITALS: BP 135/76; PULSE 92; TEMP 98.1
--- NOTE | 2018-12-06 08:00 | NUR ---
PICC intact right upper arm with sterile dressing change done with insertion site cleansed with chloraprep x 1, chlorhexidine impregnated disk applied, skin prep, stat lock, and tegaderm applied. no signs or symptoms of IV complications noted. no concerns voiced. re-wrapped with malia to protect catheter.
[2018-12-06 18:43] VITALS: BP 137/69; PULSE 78; TEMP 98.5
[2018-12-07 08:00] VITALS: BP 142/98; PULSE 92; TEMP 98.3
[2018-12-07 18:35] VITALS: BP 131/57; PULSE 98; TEMP 97.9
[2018-12-08 07:30] VITALS: BP 138/66; PULSE 98; TEMP 98
[2018-12-09 07:45] VITALS: BP 137/64; PULSE 77; TEMP 98.2
[2018-12-10 07:59] VITALS: BP 128/58; PULSE 88; TEMP 98.6
[2018-12-10 18:53] VITALS: BP 149/73; PULSE 63; TEMP 98.1
== END 2018-12-10 18:53 | disposition home or self-care (01) ==
LOC: EUO 19:39
PROVIDERS: Hospitalist
DX: E87.1 Hypo-osmolality and hyponatremia (principal); D72.829 Elevated white blood cell count, unspecified
CPT/HCPCS: J0692

== ENCOUNTER 2019-01-25 12:17 | Day surgery (SDC) | payer MEDICARE, BC ==
[2019-01-25] VITALS (7 sets, daily range): BP systolic 116–138; BP diastolic 59–88; PULSE 48–111; TEMP 98.1
[~2019-01-25] VITALS: Ht 162.8 cm; Wt 49.6 kg
[~2019-01-25 12:17] MED LIST changes: +PHENERGAN W/CO120 M1 PO; -PROMETHAZINE-CODEINE; -VITAMIN D1000 IU PO; +VITAMIN D31000 I1 PO
[2019-01-25 13:14] LABS: INR 1.7 (0.8-3.0); PROTHROMBIN TIME 20.2 SECONDS (9.7-12.8)
[2019-01-25] MEDS ORDERED: CARDIZEM CD 18180 MG PO (13:36)
[2019-01-25 13:42] LABS: POTASSIUM 4.3 mmol/L (3.4-5.0)
[2019-01-25] MEDS ORDERED: CARDI-OMEGA1000 MG PO (13:45)
--- NOTE | 2019-01-25 14:12 | NUR ---
POST CARDIOVERSION EKG COMPLETED AND SHOWN TO DR MOBLEY AND WERNER PRADHAN.
[2019-01-25 14:17] LABS: THYROID STIMULATING HORMONE 1.07 uIU/mL (0.465-4.680)
--- NOTE | 2019-01-25 16:01 | NUR ---
Discharge instructions given to pt.pt verbalizes understanding.INT removed,catheter tip intact.Pt escortedout via wheelchair.
== END 2019-01-25 16:15 | disposition home or self-care (01) ==
LOC: COL.CAR 12:17
PROVIDERS: Internal Medicine Cardiovascular Disease
DX: I48.0 Paroxysmal atrial fibrillation (principal); J44.9 Chronic obstructive pulmonary disease, unspecified; R73.01 Impaired fasting glucose; K55.059 Acute (reversible) ischemia of intestine, part and extent unspecified; M81.0 Age-related osteoporosis without current pathological fracture; E78.5 Hyperlipidemia, unspecified; B02.9 Zoster without complications; J96.90 Respiratory failure, unspecified, unspecified whether with hypoxia or hypercapnia; I10 Essential (primary) hypertension; Z90.710 Acquired absence of both cervix and uterus; Z88.1 Allergy status to other antibiotic agents; Z88.2 Allergy status to sulfonamides; Z79.01 Long term (current) use of anticoagulants; Z79.51 Long term (current) use of inhaled steroids; Z87.891 Personal history of nicotine dependence; Z82.61 Family history of arthritis; Z80.9 Family history of malignant neoplasm, unspecified; Z82.49 Family history of ischemic heart disease and other diseases of the circulatory system; Z83.3 Family history of diabetes mellitus; I27.20 Pulmonary hypertension, unspecified; I70.1 Atherosclerosis of renal artery; J30.1 Allergic rhinitis due to pollen; Z99.81 Dependence on supplemental oxygen
CPT/HCPCS: J2704; J7120

== ENCOUNTER 2020-05-25 23:12 | Emergency (ER) | payer MEDICARE, BC ==
[~2020-05-25] VITALS: Ht 157.5 cm; Wt 50.0 kg
[2020-05-25 23:22] VITALS: TEMP 98.7
[2020-05-26 00:40] LABS: BASO % 0.3 % (0.0-2.0); EOS # 0.4 (0.0-0.7); EOS % 3.5 % (0-4.0); GRAN # 7.9 (1.4-6.5); GRAN % 77.5 % (42.2-75.2); LYMPH # 0.6 (1.2-3.4); LYMPH % 6.2 % (20.0-51.0); MEAN CELL VOLUME 83 fl (80.0-100.0); MEAN CORPUSCULAR HEMOGLOBIN 26 pg (27.0-31.0); MEAN CORPUSCULAR HGB CONC 32 g/dl (33.0-37.0); MEAN PLATELET VOLUME 9.5 fl (7.4-10.4); MONO # 1.2 (0.1-0.6); MONO % 11.7 % (1.7-9.3); PLATELET COUNT 419 K/mm3 (130-400); RED BLOOD COUNT 4.19 M/mm3 (4.10-5.30); REDCELL DISTRIBUTION WIDTH-CV 16.3 % (11.5-14.5)
[2020-05-26 00:41] LABS: HEMATOCRIT 34.7 % (37.0-47.0)
[2020-05-26 00:45] LABS: INR 1.5 (0.8-3.0)
[2020-05-26 00:48] LABS: ALANINE AMINOTRANSFERASE 18 U/L (4-34); ALBUMIN 4.1 gm/dL (3.5-5.0); ALKALINE PHOSPHATASE 87 U/L (50-136); ANION GAP 6 mmol/L (7-16); AST,SGOT 26 U/L (15-37); BILIRUBIN,TOTAL 0.6 mg/dL (0.0-1.0); BLOOD UREA NITROGEN 31 mg/dL (7-17); CARBON DIOXIDE 34 mmol/L (22-30); CHLORIDE 95 mmol/L (98-107); CREATININE, serum 0.97 (0.52-1.25); GLUCOSE 133 mg/dL (74-106); MAGNESIUM 1.7 mg/dL (1.6-2.3); PARTIAL THROMBOPLASTIN TIME 33.7 SECONDS (26.0-37.0); PHOSPHOROUS 3.3 mg/dL (2.5-4.5); POTASSIUM 4.4 mmol/L (3.4-5.0); SODIUM 135 mmol/L (137-145); TOTAL PROTEIN 8.7 gm/dL (6.4-8.2)
[2020-05-26 00:59] LABS: TROPONIN-I < 0.012 ng/mL (0.000-0.035)
[2020-05-26 08:11] VITALS: BP 160/82; PULSE 73
== END 2020-05-26 07:41 | disposition home or self-care (01) ==
LOC: COL.ER 23:12
PROVIDERS: Emergency Medicine
DX: T46.1X1A Poisoning by calcium-channel blockers, accidental (unintentional), initial encounter (principal); T50.1X1A Poisoning by loop [high-ceiling] diuretics, accidental (unintentional), initial encounter; T46.5X1A Poisoning by other antihypertensive drugs, accidental (unintentional), initial encounter; T46.6X1A Poisoning by antihyperlipidemic and antiarteriosclerotic drugs, accidental (unintentional), initial encounter; I48.91 Unspecified atrial fibrillation; Z88.2 Allergy status to sulfonamides; Z88.1 Allergy status to other antibiotic agents